=== PATIENT | female | born 1940 | race Caucasian/White ===

== ENCOUNTER 2017-06-17 16:53 | Emergency (ER) | payer OTHER, MEDICAID ==
[~2017-06-17] VITALS: Ht 162.6 cm; Wt 54.4 kg
[~2017-06-17 16:53] MED LIST: ADULT LOW DOSE81 MG; AMARYL4 MG PO; ATORVASTATIN CA40 MG PO; CRESTOR10 MG PO; DICLOFENAC SOD50 M1 PO; ETODOLAC 400 M400 M1; FISHOIL; GARLIC OIL1 EAC1; GLUCOPHAGE1000 MG PO; GLYCRON6 MG; HYDROCODONE-AP1 EAC6 PO; IRON PO; JANUVIA100 MG; LIORESAL 10 MG10 MG PO; MAGNES; NAPROSYN500 MG PO; NIASPAN 500 MG500 M1; OS-CAL 500+D C1 EACH; QUESTRAN; RESTASIS1 EACH OPHTHALMIC; VICODIN 5-5001 EACH PO; VYTORIN 10-401 EACH; ZANTAC 150MG T150 MG PO; ZOLOFT 50 MG TA50 M1; [UNRECOGNIZED DRUG - OTHER]
[2017-06-17] MEDS ORDERED: JARDIANCE10 MG PO (17:18)
[2017-06-17] MEDS ORDERED: NAPROSYN500 MG PO (17:18)
[2017-06-17] MEDS ORDERED: REFRESH CLASSI1 EACH OPHTHALMIC (17:18)
[2017-06-17] MEDS ORDERED: SYNTHROID50 MCG PO (17:19)
[2017-06-17] MEDS ORDERED: ONE-A-DAY PRO200 MCG PO (17:20)
[2017-06-17] MEDS ORDERED: COLESTIPOL HCL1 G1 PO (17:21)
[2017-06-17] MEDS ORDERED: PREDNISONE 10 M10 M1 PO (18:30)
[2017-06-17 18:37] VITALS: BP 130/56
== END 2017-06-17 18:39 | disposition home or self-care (01) ==
LOC: M.ERS 16:53
DX: M54.42 Lumbago with sciatica, left side (principal); M53.3 Sacrococcygeal disorders, not elsewhere classified; E11.9 Type 2 diabetes mellitus without complications; E78.5 Hyperlipidemia, unspecified; Z90.49 Acquired absence of other specified parts of digestive tract

== ENCOUNTER → 2017-07-02 | Outpatient (CLI) | payer OTHER, MEDICAID ==
[~2017-07-02] MED LIST changes: +COLESTIPOL HCL1 G1 PO; +JARDIANCE10 MG PO; +ONE-A-DAY PRO200 MCG PO; +PREDNISONE 10 M10 M1 PO; +REFRESH CLASSI1 EACH OPHTHALMIC; +SYNTHROID50 MCG PO
== END ==
LOC: M.RAD 10:31
DX: M47.896 Other spondylosis, lumbar region (principal); M85.872 Other specified disorders of bone density and structure, left ankle and foot

== ENCOUNTER → 2017-08-02 | Outpatient (CLI) | payer OTHER, MEDICAID | LOC: M.RAD 11:24 | DX: M25.572 Pain in left ankle and joints of left foot (principal) ==

== ENCOUNTER → 2017-12-23 | Outpatient (CLI) | payer OTHER, MEDICAID | LOC: M.MRI 12-13 15:37 | DX: M25.572 Pain in left ankle and joints of left foot (principal); G58.8 Other specified mononeuropathies; E11.9 Type 2 diabetes mellitus without complications; E78.5 Hyperlipidemia, unspecified ==

== ENCOUNTER 2020-07-21 14:56 | Inpatient (IN) | payer OTHER, MEDICAID ==
[~2020-07-21] VITALS: Ht 162.6 cm; Wt 51.3 kg
--- NOTE | ~2020-07-21 | PROC ---
[facility] [address] [place] [address] PROCEDURE REPORT Name: RONI VENTURA Room: [address] IN M.R.#: [id number] Admission: 07/21/20 Attend Phys: Gadiel Lynch Discharge: 07/23/20 Date of : 44 Report #: [id number] THIS REPORT FOR: cc: Emmanuel Spaulding Steve T. DO [facility],Medical Records Staff ~ For GI report, please see the Provation report in Perceptive 7 content. By: 0648Medical Records Staff MARKO /JERILYN
[~2020-07-21 14:56] MED LIST changes: -ATORVASTATIN CA40 MG PO; +LIPITOR40 MG PO
[2020-07-21 15:02] VITALS: BP 169/69
[2020-07-21 15:17] LABS: URINE BILIRUBIN NEGATIVE (Negative); URINE BLOOD TRACE (Negative); URINE CLARITY CLEAR; URINE COLOR YELLOW; URINE GLUCOSE-RANDOM 3+ (Negative); URINE KETONES TRACE (Negative); URINE LEUKOCYTES-REFLEX TRACE (Negative); URINE NITRITE-REFLEX NEGATIVE (Negative); URINE PROTEIN NEGATIVE (Negative); URINE SPECIFIC GRAVITY <= 1.005 (1.005-1.030); URINE UROBILINOGEN 0.2 E.U./dl (0.2-1.0)
[2020-07-21 15:24] LABS: SQUAMOUS 0-3 Few /LPF (0-3); URINE WBC-REFLEX 0-5 Rare /HPF (0-5)
[2020-07-21 15:25] LABS: BACTERIA-REFLEX 1-9 Few /HPF (None Seen); CASTS None Seen /LPF (None Seen); CRYSTALS None Seen /LPF (None Seen); URINE RBC 3-10 Few /HPF (0-2)
[2020-07-21 15:36] LABS: ABSOLUTE BASOPHILS 0.1 thou/uL (0.0-0.2); ABSOLUTE LYMPHOCYTES 1.7 thou/uL (0.8-5.3); ABSOLUTE MONOCYTES 0.7 thou/uL (0.0-1.2); BASOPHILS 0.5 %; EOSINOPHILS 0.4 %; HEMATOCRIT 33.4 % (37.0-47.0); HEMOGLOBIN 10.3 gm/dL (12.0-15.0); LYMPHOCYTES 14.9 %; MCH 23.9 pg (26.0-34.0); MCHC 30.9 g/dL (28.0-37.0); MCV 77.3 fL (80.0-100.0); MONOCYTES 6.4 %; MPV 7.3 fl. (7.2-11.1); NUCLEATED RBCS 0 /100WBC; PLATELET COUNT* 445 thou/uL (150-400); POLYS 77.8 %; RBC 4.32 mil/uL (4.20-5.00); RDW-CV 14.9 % (10.5-14.5); WBC 11.5 thou/uL (4.0-11.0)
[2020-07-21 15:37] LABS: BE -1.6 mmol/L (-2 to +3); PCO2 VENOUS 42.4 mmHg (41.0-51.0); PO2 VENOUS 78.5 mmHg (35.0-45.0)
[2020-07-21 15:49] LABS: CALCIUM 10.7 mg/dL (8.5-10.1); CREATININE 1.3 mg/dL (0.6-1.3); POTASSIUM 4.8 mmol/L (3.5-5.1)
[2020-07-21] MEDS ORDERED: ASA81BEC PO (15:51)
[2020-07-21] MEDS ORDERED: GABAPENTIN100 MG PO (15:51)
[2020-07-21 15:53] LABS: ALBUMIN 3.4 g/dL (3.4-5.0); TOTAL BILIRUBIN 0.4 mg/dL (<0.1-1.0); TOTAL PROTEIN 6.8 g/dL (6.4-8.2)
[2020-07-21 20:20] VITALS: BP 145/59
[2020-07-21 20:45] VITALS: BP 145/59
[2020-07-22 08:00] VITALS: BP 121/50
--- NOTE | 2020-07-22 11:00 | EKG ---
[place] [address] ELECTROCARDIOGRAM REPORT Name: RONI VENTURA Room: [address] ADM IN .R.#: [id number] Admission: 07/21/20 Attend Phys: Wilberto Way Discharge: Date of : 44 Date of Service: 07/21/20 1551 Report #: [id number] THIS REPORT FOR: //name// [facility] ED Test Date: 2020-07-21 Test Time: 15:51:46 Pat Name: RONI VENTURA Department: Room: [facility] Gender: F President And Chief Operating Officer: CINDY : 1940 Requested By: Drew Rivera Order Number: [id number] MD: Jeremy Alves Measurements Intervals [place] Rate: 98 P: 111 VT: 110 QRS: 120 QRSD: 83 T: 137 QT: 347 QTc: 444 Interpretive Statements Sinus rhythm Borderline short VT interval Right ventricular hypertrophy Nonspecific T abnormalities, lateral leads No previous ECG available for comparison Electronically Signed On 07-22-2020 11:00:38 CDT by Jeremy Alves [email or web address] <ELECTRONICALLY SIGNED> By: Jeremy Alves MD, FAC 07/22/20 1100 1551 1551 Jeremy Alves MD, [facility] /EPI
[2020-07-22 11:14] LABS: ABSOLUTE EOSINOPHILS 0.1 thou/uL (0.0-0.7); ABSOLUTE LYMPHOCYTES 1.7 thou/uL (0.8-5.3); ABSOLUTE MONOCYTES 0.7 thou/uL (0.0-1.2); ABSOLUTE NEUTROPHILS 8.1 thou/uL (1.6-8.1); BASOPHILS 0.2 %; EOSINOPHILS 1.3 %; HEMOGLOBIN 9.3 gm/dL (12.0-15.0); LYMPHOCYTES 16.2 %; MCHC 30.8 g/dL (28.0-37.0); MCV 77.8 fL (80.0-100.0); MONOCYTES 6.7 %; NUCLEATED RBCS 0 /100WBC; POLYS 75.6 %; RBC 3.86 mil/uL (4.20-5.00); RDW-CV 14.9 % (10.5-14.5); WBC 10.7 thou/uL (4.0-11.0)
[2020-07-22 11:20] LABS: PLATELET COUNT* 363 thou/uL (150-400)
[2020-07-22 11:30] LABS: ALBUMIN 2.6 g/dL (3.4-5.0); CALCIUM 9.5 mg/dL (8.5-10.1); CREATININE 0.8 mg/dL (0.6-1.3); POTASSIUM 4.1 mmol/L (3.5-5.1); TOTAL BILIRUBIN 0.2 mg/dL (<0.1-1.0); TOTAL PROTEIN 5.9 g/dL (6.4-8.2)
[2020-07-22 15:38] VITALS: BP 147/60
[2020-07-22 19:56] VITALS: BP 103/42
[2020-07-23 04:46] LABS: ABSOLUTE EOSINOPHILS 0.2 thou/uL (0.0-0.7); ABSOLUTE LYMPHOCYTES 2.2 thou/uL (0.8-5.3); ABSOLUTE MONOCYTES 0.9 thou/uL (0.0-1.2); ABSOLUTE NEUTROPHILS 7.4 thou/uL (1.6-8.1); BASOPHILS 0.3 %; EOSINOPHILS 2.1 %; HEMATOCRIT 27.4 % (37.0-47.0); HEMOGLOBIN 8.4 gm/dL (12.0-15.0); LYMPHOCYTES 20.7 %; MCH 23.8 pg (26.0-34.0); MCHC 30.8 g/dL (28.0-37.0); MCV 77.3 fL (80.0-100.0); MONOCYTES 8.4 %; MPV 6.7 fl. (7.2-11.1); NUCLEATED RBCS 0 /100WBC; PLATELET COUNT* 351 thou/uL (150-400); POLYS 68.5 %; RBC 3.55 mil/uL (4.20-5.00); RDW-CV 14.6 % (10.5-14.5); WBC 10.8 thou/uL (4.0-11.0)
[2020-07-23 05:06] LABS: ALBUMIN 2.2 g/dL (3.4-5.0); CALCIUM 8.7 mg/dL (8.5-10.1); CREATININE 0.9 mg/dL (0.6-1.3); POTASSIUM 4.1 mmol/L (3.5-5.1); TOTAL BILIRUBIN 0.1 mg/dL (<0.1-1.0); TOTAL PROTEIN 5.3 g/dL (6.4-8.2)
[2020-07-23 07:45] VITALS: BP 102/44
[2020-07-23] MEDS ORDERED: IRON325 PO (09:40)
[2020-07-23] MEDS ORDERED: NAPROSYN500 MG PO (09:40)
[2020-07-23] MEDS ORDERED: CARAFATE 1 GM TA1 G1 PO (09:40)
[2020-07-23] MEDS ORDERED: PREVACID30 M2 PO (09:40)
[2020-07-23] MEDS ORDERED: REGLAN 10 MG TA10 MG PO (09:40)
[2020-07-23] MEDS ORDERED: AUGMENTIN 875-1 EACH PO (09:40)
[2020-07-23 11:06] VITALS: BP 102/44
[2020-07-23 12:38] VITALS: BP 102/44
--- NOTE | 2020-07-25 07:32 | CON ---
[address] [address] CONSULTATION Name: RONI VENTURA Room: [address] IN M.R.#: [id number] Admission: 07/21/20 Attend Phys: Gadiel Lynch Discharge: 07/23/20 Date of : 44 Report #: [id number] THIS REPORT FOR: cc: Emmanuel Spaulding Steve T. DO Bodenstab, Johnna L. FNP ~ DOC #: [id number] cc: DO Estefania Gilman FNP DATE OF CONSULTATION: 07/22/2020 Please note at the time of this dictation, the patient was seen and physically examined by myself. REASON FOR CONSULTATION: Abnormal CT showing a gastric mass, nausea, and weight loss of 7 pounds. HISTORY OF PRESENT ILLNESS: This is a 79-year-old female, who is known to our practice, who underwent an EGD back in 10/2019 that showed grade B esophagitis. She had a gastric ulcer, duodenal erosions with biopsies showing chronic gastritis, negative for H. pylori and duodenal biopsy showed focal increased eosinophilic ____ and she was started on pantoprazole 40 mg b.i.d. She was to have a repeat EGD in 12/2019, but the patient called and canceled that appointment. Last colonoscopy was in 10/2019 at the same time as her EGD, she had a rectal polyp that was hyperplastic, otherwise internal hemorrhoids and essentially negative. ALLERGIES: LIDOCAINE, FAMOTIDINE, and PANTOPRAZOLE. MEDICATIONS FROM HOME: Include metformin, iron, atorvastatin, Refresh eyedrops, naproxen, Jardiance, Synthroid, folic acid, One-A-Day Vitamin, gabapentin, enteric-coated aspirin, Januvia, garlic oil, fish oil, Amaryl, [place], and Zoloft. PAST MEDICAL HISTORY: Noninsulin dependent diabetic, hyperlipidemia, chronic back pain, hypothyroidism, and some depression. PAST SURGICAL HISTORY: Laparoscopic cholecystectomy and a graft, bilateral ear drums. FAMILY HISTORY: Noncontributory. SOCIAL HISTORY: Denies any alcohol, tobacco, [place] [address] CONSULTATION Name: RONI VENTURA Room: [address]#: [id number] Admission: 07/21/20 Attend Phys: Gadiel Lynch Discharge: 07/23/20 Date of : 44 Report #: [id number] REVIEW OF SYSTEMS: Twelve-point review of systems is essentially negative except what is mentioned in the HPI. PHYSICAL EXAMINATION: VITAL SIGNS: Temperature 36.6, pulse 87, respirations 18, and blood pressure 145/59. HEART: Regular rate and rhythm. LUNGS: Diminished but clear. ABDOMEN: Soft, positive bowel sounds in all 4 quadrants with some tenderness noted in the epigastric area. LABORATORY DATA: Hemoglobin is 10.3, white count is 11.5, and platelets 445. LFTs are completely normal. BUN is 33 with a GFR of 40. Lipase 291. CT of the abdomen and pelvis shows gastric outlet obstruction with fluid distention, gastric antral and proximal duodenal mass-like mural thickening and ____ without surrounding inflammation. An incidental solitary duodenal diverticulum noted at 2.3 cm arising from the third segment. IMPRESSION: 1. Nausea. 2. Weight loss of 7 pounds. 3. Abdominal pain, more in the epigastric. 4. Abnormal CT with likely gastric outlet obstruction with fluid distention and gastric and antral and proximal duodenal mass-like mural thickening noted. 5. Anemia. 6. Chronic NSAID use. PLAN: 1. EGD. 2. Further recommendations after the above has been performed. Thank you for allowing us to participate in this patient's care. Please do not hesitate to call with any questions regarding this consult. MD ANDREW Gallegos/ADRIANA/SHARON <ELECTRONICALLY SIGNED> By: MARLYN Mesa 07/25/20 0732 0836 2216JoMARLYN Cueva /nt
--- NOTE | 2020-07-27 13:08 | PATH ---
[address] [address] PATHOLOGY RPT PROCEDURE Name: HELGA SANCHES Room: [address] IN M.R.#: [id number] Admission: 07/21/20 Date of : 44 Discharge: 07/23/20 Report #: [id number] Path Case #: [id number] [facility] Accession Number: [id number] . 01 Material submitted: . PART A: stomach - DUODENAL BULB ULCER/ANTRAL BIOPSY PART B: gastrointestinal site - GASTRIC ULCER . 01 Clinical history: . B. RULE OUT H. PYLORI . 02 Diagnosis: A. Duodenal bulb ulcer/antral biopsy: - Benign gastric antral and duodenal/small intestinal types mucosa with severe, nonspecific active inflammation and ulceration, negative for Helicobacter pylori organisms, granulomas and dysplasia/adenomatous change. . B. Gastric ulcer: - Mild chronic gastritis suggesting reactive gastropathy (chemical gastritis), negative for Helicobacter pylori organisms, granulomas and dysplasia. . (ALICIA:mml; 07/26/2020) QL 07/26/2020 1719 Local . 02 Comment: Special stains: H. pylori immuno on A and B . (ALICIA:mml; 07/26/2020) . 02 Electronically signed: . Jeremie Knight MD, Pathologist NPI- [id number] . 01 Gross description: . A. Received in formalin labeled "Helga Sanches and duodenal bulb ulcer/antral biopsy". Received are multiple marti-brown soft tissue fragments ranging from 0.1-0.2 cm. Specimen is entirely submitted in cassette A1. . B. Received in formalin labeled "Helga Sanches and gastric ulcer rule out H. pylori". Received are multiple thao-marti soft tissue fragments ranging from 0.1-0.3 cm. Specimen is entirely submitted in cassette B1.([facility]; 07/25/2020) [facility] 07/26/2020 1714 Local . 02 Pathologist provided ICD-10: [place] [address] PATHOLOGY RPT PROCEDURE Name: HELGA SANCHES Room: [address] IN [facility].#: [id number] Admission: 07/21/20 Date of : 44 Discharge: 07/23/20 Report #: [id number] Path Case #: [id number] K29.80, K25.9, K29.50 . 02 CPT . [id number], [id number], [id number] Specimen Comment: A courtesy copy of this report has been sent to [phone] Specimen Comment: [phone], Specimen Comment: Report sent to ,DR FORMAN / DR YEBOAH Performed at: [address], [place], [place] [address] MD Bernard Nichols MD Phone: [phone] Performed at: [facility] [address], [place], [place] [id number] MD Jeremie Knight MD Phone: [phone]
== END 2020-07-23 12:42 | disposition home or self-care (01) | DRG 391 ==
LOC: M.ERS 14:56 → M.ORTHSURG 17:04 → M.TBA-ER 17:04 → M.ORTHSURG 20:47
PROVIDERS: Emergency Medicine Emergency Medical Services; ADMIT Internal Medicine; ATTEND Internal Medicine
PROC: 0DB98ZX Excision of Duodenum, Via Natural or Artificial Opening Endoscopic, Diagnostic (ICD-10-PCS; principal; 2020-07-22)
PROC: 0DB68ZX Excision of Stomach, Via Natural or Artificial Opening Endoscopic, Diagnostic (ICD-10-PCS; principal; 2020-07-22)
DX: K31.89 Other diseases of stomach and duodenum (principal); E11.00 Type 2 diabetes mellitus with hyperosmolarity without nonketotic hyperglycemic-hyperosmolar coma (NKHHC); N39.0 Urinary tract infection, site not specified; K31.1 Adult hypertrophic pyloric stenosis; R65.10 Systemic inflammatory response syndrome (SIRS) of non-infectious origin without acute organ dysfunction; E11.65 Type 2 diabetes mellitus with hyperglycemia; E86.0 Dehydration; G89.29 Other chronic pain; M54.9 Dorsalgia, unspecified; E78.5 Hyperlipidemia, unspecified; F32.9 Major depressive disorder, single episode, unspecified; E03.9 Hypothyroidism, unspecified; D64.9 Anemia, unspecified; K21.00 Gastro-esophageal reflux disease with esophagitis, without bleeding; K44.9 Diaphragmatic hernia without obstruction or gangrene; K25.9 Gastric ulcer, unspecified as acute or chronic, without hemorrhage or perforation; K26.9 Duodenal ulcer, unspecified as acute or chronic, without hemorrhage or perforation; K22.2 Esophageal obstruction; Z20.822 Contact with and (suspected) exposure to COVID-19; Z90.49 Acquired absence of other specified parts of digestive tract; Z88.8 Allergy status to other drugs, medicaments and biological substances; Z79.82 Long term (current) use of aspirin; Z79.84 Long term (current) use of oral hypoglycemic drugs; Z79.899 Other long term (current) drug therapy

== ENCOUNTER 2020-10-11 11:43 | Inpatient (IN) | payer OTHER, MEDICAID ==
[~2020-10-11] VITALS: Ht 162.6 cm; Wt 49.0 kg
[~2020-10-11 11:43] MED LIST changes: +ASA81BEC PO; +AUGMENTIN 875-1 EACH PO; +CARAFATE 1 GM TA1 G1 PO; +GABAPENTIN100 MG PO; +IRON325 PO; +PREVACID30 M2 PO; +REGLAN 10 MG TA10 MG PO
[2020-10-11 12:01] VITALS: BP 180/98
[2020-10-11] MEDS ORDERED: JANUVIA100 MG PO (13:58)
[2020-10-11] MEDS ORDERED: CALCIUM500 MG PO (13:59)
[2020-10-11] MEDS ORDERED: FISH OIL 1,0001 EAC9 PO (13:59)
[2020-10-11 14:01] LABS: ABSOLUTE BASOPHILS 0.1 thou/uL (0.0-0.2); ABSOLUTE LYMPHOCYTES 2.2 thou/uL (0.8-5.3); ABSOLUTE MONOCYTES 0.5 thou/uL (0.0-1.2); ABSOLUTE NEUTROPHILS 11.2 thou/uL (1.6-8.1); BASOPHILS 0.6 %; EOSINOPHILS 0.1 %; HEMATOCRIT 41.4 % (37.0-47.0); HEMOGLOBIN 13.3 gm/dL (12.0-15.0); LYMPHOCYTES 15.5 %; MCH 25.7 pg (26.0-34.0); MCHC 32.1 g/dL (28.0-37.0); MCV 80.1 fL (80.0-100.0); MONOCYTES 3.9 %; MPV 7.5 fl. (7.2-11.1); NUCLEATED RBCS 0 /100WBC; PLATELET COUNT* 371 thou/uL (150-400); POLYS 79.9 %; RBC 5.17 mil/uL (4.20-5.00); RDW-CV 16.7 % (10.5-14.5)
[2020-10-11 14:09] LABS: CALCIUM 10.4 mg/dL (8.5-10.1); CREATININE 1.1 mg/dL (0.6-1.3); POTASSIUM 3.5 mmol/L (3.5-5.1)
[2020-10-11 14:13] LABS: TOTAL BILIRUBIN 0.6 mg/dL (<0.1-1.0); TOTAL PROTEIN 7.9 g/dL (6.4-8.2)
[2020-10-11 15:13] LABS: BE -1.2 mmol/L (-2 to +3); PCO2 VENOUS 45.2 mmHg (41.0-51.0); PO2 VENOUS 26.2 mmHg (35.0-45.0)
--- NOTE | 2020-10-11 15:41 | EKG ---
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1940 Requested By: Sindy June Order Number: [id number] MD: Jeremy Alves Measurements Intervals [place] Rate: 104 P: 71 OR: 151 QRS: 64 QRSD: 78 T: 60 QT: 363 QTc: 478 Interpretive Statements Sinus tachycardia Borderline prolonged QT interval Baseline wander in lead(s) V2 Compared to ECG 07/21/2020 15:51:46 Sinus rhythm no longer present Right ventricular hypertrophy no longer present T-wave abnormality no longer present Electronically Signed On 10-11-2020 15:41:33 CDT by Jeremy Alves [email or web address] <ELECTRONICALLY SIGNED> By: Jeremy Alves MD, [facility] 10/11/20 1541 1350 1350 Jeremy Alves MD, [facility] /EPI
--- NOTE | 2020-10-11 16:27 | NUR ---
PT AMBUATED TO RESTROOM WITH 1 PERSON ASSIST.
[2020-10-11 16:36] LABS: URINE BILIRUBIN NEGATIVE (Negative); URINE BLOOD 1+ (Negative); URINE CLARITY CLEAR; URINE COLOR YELLOW; URINE GLUCOSE-RANDOM 3+ (Negative); URINE LEUKOCYTES-REFLEX NEGATIVE (Negative); URINE PROTEIN 2+ (Negative); URINE UROBILINOGEN 0.2 E.U./dl (0.2-1.0)
[2020-10-11 16:39] LABS: URINE KETONES 3+ (Negative); URINE NITRITE-REFLEX POSITIVE (Negative)
[2020-10-11 16:41] LABS: ACETEST (KETONE CONFIRMATORY) Moderate (Negative)
[2020-10-11 16:44] LABS: BACTERIA-REFLEX 1-9 Few /HPF (None Seen); CASTS None Seen /LPF (None Seen); CRYSTALS None Seen /LPF (None Seen); SQUAMOUS 4-10 Moderate /LPF (0-3); URINE RBC 3-10 Few /HPF (0-2); URINE WBC-REFLEX 0-5 Rare /HPF (0-5)
--- NOTE | 2020-10-11 17:55 | NUR ---
PT GIVEN DINNER TRAY. DR. LYLES SPEAKING WITH THE PATIENT AT THIS TIME
[2020-10-11 21:00] VITALS: BP 107/78
[2020-10-12] VITALS (8 sets, daily range): BP systolic 110–187; BP diastolic 60–87
[2020-10-12 03:06] LABS: ABSOLUTE BASOPHILS 0.1 thou/uL (0.0-0.2); ABSOLUTE EOSINOPHILS 0.1 thou/uL (0.0-0.7); ABSOLUTE MONOCYTES 1.3 thou/uL (0.0-1.2); ABSOLUTE NEUTROPHILS 9.9 thou/uL (1.6-8.1); BASOPHILS 0.5 %; EOSINOPHILS 0.8 %; HEMOGLOBIN 13.2 gm/dL (12.0-15.0); MCH 25.8 pg (26.0-34.0); MCHC 33.1 g/dL (28.0-37.0); MONOCYTES 8.7 %; MPV 7.2 fl. (7.2-11.1); NUCLEATED RBCS 0 /100WBC; PLATELET COUNT* 420 thou/uL (150-400); RBC 5.12 mil/uL (4.20-5.00); RDW-CV 16.9 % (10.5-14.5); WBC 15.4 thou/uL (4.0-11.0)
[2020-10-12 03:14] LABS: CREATININE 0.9 mg/dL (0.6-1.3); POTASSIUM 3.6 mmol/L (3.5-5.1)
--- NOTE | 2020-10-12 12:44 | NUR ---
PT ADMITTED WITH GENERALIZED WEAKNESS. PT ALERT AND ORIENTED. PT ORIENTED TO ROOM. FALL RISK PRECAUTIONS IN PLACE.
--- NOTE | 2020-10-12 16:17 | NUR ---
CM S/W PT WHO INDICATED SHE LIVES ALONE IN ONE LEVEL APT. HER DTR LIVES IN THE SAME COMPLEX. PT IS ACTIVE AND INDEPENDENT WITH CARES. PT HAS NO DMES. NO HX WITH HH OR SNF. PT IS RETIRED. CM TO CONT TO FOLLOW.
--- NOTE | 2020-10-12 16:26 | NUR ---
PT REMAINED ALERT AND ORIENTED. PT RESTING IN BED. CALL LIGHT WITHIN REACH. FALL RISK PRECAUTIONS IN PLACE. ACCU CHECKS COMPLETED. HOURLY ROUNDING COMPLETED.
[2020-10-13 04:04] LABS: HEMATOCRIT 35.7 % (37.0-47.0); HEMOGLOBIN 11.8 gm/dL (12.0-15.0); MCH 26.5 pg (26.0-34.0); MCHC 33.1 g/dL (28.0-37.0); MCV 79.9 fL (80.0-100.0); MPV 7.2 fl. (7.2-11.1); RBC 4.46 mil/uL (4.20-5.00); RDW-CV 16.7 % (10.5-14.5); WBC 11.6 thou/uL (4.0-11.0)
--- NOTE | 2020-10-13 04:10 | NUR ---
PT A&OX4, VSS ON ROOM AIR, PT UP WITH ASSIST TO BR. IV FLUIDS INFUSING ORDERED. HYDRALAZINE GIVEN ORDERED FOR BP 184/70. PRN PAIN MED REQUESTED AND GIVEN ORDERED. ASSESSMENTS AND HOURLY ROUNDINGS COMPLETE, WILL CONTINUE TO MONITOR.
[2020-10-13 04:17] LABS: CALCIUM 8.2 mg/dL (8.5-10.1); CREATININE 0.7 mg/dL (0.6-1.3)
[2020-10-13 05:02] LABS: POTASSIUM 2.7 mmol/L (3.5-5.1)
[2020-10-13 08:00] VITALS: BP 201/98
--- NOTE | 2020-10-13 10:59 | NUR ---
1016: PATIENT C/O FEELING WEAK. BLOOD SUGAR 263, BLOOD PRESSURE 169/70, HEART 109, SAT 97%, RESPIRATONS 19. NO C/O SOA. DR. CLEMENTE PAGED. NEW ORDERS FOR LAB DRAW AND PROTOCOL FOR ELECTROLYTES. WILL CONTINUE TO MONITOR.
--- NOTE | 2020-10-13 15:10 | NUR ---
POC UPDATE: PT K NEEDS IMPROVEMENT. K IS BEING SUPPLEMENTED. DR CLEMENTE DISCUSSED SNF AT D/C OPTION. CM SPK WITH PT ABOUT DOCTOR'S RECOMMEDATION. PT INDICATED SHE DOES NOT WANT SNF. PT IS OPEN TO HH.
[2020-10-13 16:28] VITALS: BP 178/72
[2020-10-13 18:21] LABS: CALCIUM 8.5 mg/dL (8.5-10.1); CREATININE 0.9 mg/dL (0.6-1.3); POTASSIUM 3.3 mmol/L (3.5-5.1)
--- NOTE | 2020-10-13 19:03 | NUR ---
PATIENT TRANSFERED TO [facility] VIA WHEELCHAIR ACCOMPANIED BY NURSING STAFF. IV TO LEFT WRIST WITH NORMAL SALINE INFUSING AT 80ML/HR. HYDRALAZINE GIVEN X1. BLOOD SUGARS MONITORED, INSULIN GIVEN ORDERED. POTASSIUM GIVEN X3 THROUGH IV, X1 PO DUE TO LOW POTASSIUM. X1 ASSIST WITH GAIT BELT. ALL QUESTIONS AND CONCERNS ADDRESSED.
[2020-10-13 20:00] VITALS: BP 174/81
[2020-10-14] VITALS (7 sets, daily range): BP systolic 128–200; BP diastolic 49–97
--- NOTE | 2020-10-14 13:22 | NUR ---
Nutrition: Pt admitted with UTI, generalized weakness. Seen for "uncontrolled DM." Pt stated her BG at home runs 140-150 usually. BG currently is 287. Albumin 4. She is eating lunch, CHO control diet. She said she is having trouble getting the food to her mouth d/t her tremors; I sat and helped to feed her lunch. She is eating well. Insulin and other meds reviewed. She said her usual wt is 110-113#. Current wt 108#. Denies wt loss. Per assessment of her diet recall, she eats a CHO controlled diet at home, appears to have a healthy diet. She did agree to take home info on CHO counting - I left packet on her table. Consider mild risk at this time.
--- NOTE | 2020-10-14 16:11 | NUR ---
PT AGREEABLE TO HH, RECOMMENDED BY THE DOCTOR. CM FAXED REFERRAL TO [facility]. PER SAMARIA, [facility] IS ACCEPTING OF PT. DC ORDERS NEED TO BE FAXED AT ID [phone].
[2020-10-14 21:24] LABS: CALCIUM 8.6 mg/dL (8.5-10.1); CREATININE 0.8 mg/dL (0.6-1.3); POTASSIUM 4.2 mmol/L (3.5-5.1)
[2020-10-14 21:28] LABS: MAGNESIUM 0.8 mg/dL (1.8-2.4)
[2020-10-15 04:39] VITALS: BP 125/49
[2020-10-15 04:41] LABS: HEMATOCRIT 32.4 % (37.0-47.0); HEMOGLOBIN 10.7 gm/dL (12.0-15.0); MCH 26.2 pg (26.0-34.0); MCHC 33.1 g/dL (28.0-37.0); MCV 79.1 fL (80.0-100.0); MPV 7.4 fl. (7.2-11.1); RBC 4.09 mil/uL (4.20-5.00); RDW-CV 17.4 % (10.5-14.5); WBC 12.2 thou/uL (4.0-11.0)
[2020-10-15 04:58] LABS: ALBUMIN 2.6 g/dL (3.4-5.0); CALCIUM 8.5 mg/dL (8.5-10.1); CREATININE 0.7 mg/dL (0.6-1.3); MAGNESIUM 2.6 mg/dL (1.8-2.4); TOTAL BILIRUBIN 0.3 mg/dL (<0.1-1.0); TOTAL PROTEIN 5.4 g/dL (6.4-8.2)
--- NOTE | 2020-10-15 07:15 | NUR ---
PATIENT SLEPT MOST OF THE NIGHT. BEGINNING OF SHIFT DAUGHTER CALLED OUT STATED PATIENT WAS IN ALOT OF PAIN AND PATIENT WAS NOT ACTING NORMAL. WENT IN TO ASSESS PATIENT BP WAS ELEVATED AT 191/79 AND HR WAS 117. PATIENT WAS COMPLAING OF PAIN ALL OVER AND WAS SPASMING/JERKING. PATIENT WAS GIVEN HYDRALAZINE 10 MG IV FOR BP AND HYDROCODONE 2 TABS FOR PAIN AT ABOUT [address] CLEMENTE WAS PAGED. LABS WERE ORDERED AND MAGNESIUM WAS CRITICAL LOW AT 0.8 MG. MAGNESIUM WAS REPLACED PER PROTCOL. BP CAME DOWN INTITIALLY TO 132/49 AND HAS BEEN STABLE SINCE. PATIENT HAS NO COMPLAINTS OF PAIN THIS MORNING. WILL CONTINUE TO MONITOR.
[2020-10-15 08:00] VITALS: BP 161/69
[2020-10-15 12:00] VITALS: BP 124/52
[2020-10-15 16:00] VITALS: BP 164/64
--- NOTE | 2020-10-15 18:46 | NUR ---
ALERT AND ORIENTED X4. DENIED NEED FOR PAIN MEDICATION . CONTINUES ON IV ANTIBIODICS WITHOUT ADVERSE REACTIONS OR SIDE EFFECTS. USES CALL LIGHT WITHOUT REACH. FALL PRECAUTIONS IN PLACE. BED AND CHAIR ALARM USED.
[2020-10-15 20:30] VITALS: BP 153/62
[2020-10-16] VITALS: BP 162/72
[2020-10-16 04:26] LABS: HEMATOCRIT 28.2 % (37.0-47.0); HEMOGLOBIN 9.6 gm/dL (12.0-15.0); MCH 26.7 pg (26.0-34.0); MCV 78.5 fL (80.0-100.0); MPV 7.7 fl. (7.2-11.1); RBC 3.59 mil/uL (4.20-5.00); RDW-CV 17.4 % (10.5-14.5); WBC 12.2 thou/uL (4.0-11.0)
[2020-10-16 04:59] LABS: ALBUMIN 2.4 g/dL (3.4-5.0); CALCIUM 8.6 mg/dL (8.5-10.1); CREATININE 0.6 mg/dL (0.6-1.3); MAGNESIUM 1.1 mg/dL (1.8-2.4); POTASSIUM 3.6 mmol/L (3.5-5.1); TOTAL BILIRUBIN 0.3 mg/dL (<0.1-1.0); TOTAL PROTEIN 5.4 g/dL (6.4-8.2)
--- NOTE | 2020-10-16 08:09 | NUR ---
PATIENT SLEPT MOST OF THE NIGHT. IV REMAINS SALINE LOCKED. PATIENT WAS GIVEN PAIN MEDICINE ONCE THIS SHIFT. WILL CONTINUE TO MONITOR.
[2020-10-16 09:30] VITALS: BP 107/54
[2020-10-16 16:00] VITALS: BP 103/40
--- NOTE | 2020-10-16 18:30 | NUR ---
ALERT AND ORIENTED X4. UP WITH 1 ASSIST, GAIT BELT AND WALKER TO BATHROOM. USES PO PAIN MEDICATION TO HELP WITH PAIN. CONTINENT OF BOWEL AND BLADDER TODAY. MAGNESIUM REPLACED TODAY. USES CALL LIGHT FOR ASSIST. FALL PRECAUTIONS IN PLACE.
[2020-10-16 20:30] VITALS: BP 143/60
[2020-10-17] VITALS: BP 169/75
[2020-10-17 08:00] VITALS: BP 159/71
--- NOTE | 2020-10-17 08:09 | NUR ---
PATIENT SLEPT MOST OF THE NIGHT. IV REMAINS SALINE LOCKED. PATIENT WAS GIVEN PAIN MEDICINE ONCE THIS SHIFT. PATIENT COULD POSSIBLY GO HOME TODAY. WILL CONTINUE TO MONITOR.
[2020-10-17] MEDS ORDERED: CIPROFLOXACIN500 M1 PO (09:17)
[2020-10-17] MEDS ORDERED: NORVASC5 MG PO (09:17)
[2020-10-17] MEDS ORDERED: KLOR-CON 1010 MEQ PO (09:17)
[2020-10-17] MEDS ORDERED: MAG-OXIDE400 MG PO (09:17)
[2020-10-17] MEDS ORDERED: PRINIVIL40 MG PO (09:17)
[2020-10-17 09:51] LABS: CALCIUM 9.1 mg/dL (8.5-10.1); CREATININE 0.8 mg/dL (0.6-1.3); POTASSIUM 4.1 mmol/L (3.5-5.1)
[2020-10-17 11:41] VITALS: BP 159/71
--- NOTE | 2020-10-17 14:39 | NUR ---
Pt medically stable to dc today. CM faxed dc HH orders to [facility]
[2020-10-17 15:45] VITALS: BP 159/71
== END 2020-10-17 15:30 | disposition home health service (06) | DRG 872 ==
LOC: M.ERS 11:43 → M.TBA-ER 16:48 → M.3W 16:48 → M.2W 16:48 → M.3W 10-12 12:00 → M.2W 10-13 18:11
PROVIDERS: Internal Medicine; Nurse Practitioner Family; ADMIT Internal Medicine; ATTEND Internal Medicine
DX: A41.9 Sepsis, unspecified organism (principal); N30.01 Acute cystitis with hematuria; E11.65 Type 2 diabetes mellitus with hyperglycemia; E78.5 Hyperlipidemia, unspecified; E03.9 Hypothyroidism, unspecified; E87.6 Hypokalemia; I10 Essential (primary) hypertension; E83.42 Hypomagnesemia; G89.29 Other chronic pain; E11.40 Type 2 diabetes mellitus with diabetic neuropathy, unspecified; B96.89 Other specified bacterial agents as the cause of diseases classified elsewhere; M54.9 Dorsalgia, unspecified; Z20.822 Contact with and (suspected) exposure to COVID-19; Z90.49 Acquired absence of other specified parts of digestive tract; Z79.899 Other long term (current) drug therapy; Z79.84 Long term (current) use of oral hypoglycemic drugs; Z88.8 Allergy status to other drugs, medicaments and biological substances

== ENCOUNTER 2020-12-11 11:22 | Emergency (ER) | payer OTHER, MEDICAID ==
[~2020-12-11] VITALS: Ht 162.6 cm; Wt 50.8 kg
[~2020-12-11 11:22] MED LIST changes: +CALCIUM500 MG PO; +CIPROFLOXACIN500 M1 PO; +FISH OIL 1,0001 EAC9 PO; +JANUVIA100 MG PO; +KLOR-CON 1010 MEQ PO; +MAG-OXIDE400 MG PO; +NORVASC5 MG PO; +PRINIVIL40 MG PO
[2020-12-11] MEDS ORDERED: DOXYCYCLINE 10100 MG PO (13:09)
[2020-12-11] MEDS ORDERED: CENTANY30 GM TOP (13:13)
[2020-12-11 13:24] VITALS: BP 138/72
== END 2020-12-11 13:26 | disposition home or self-care (01) ==
LOC: M.ERS 11:22
DX: L02.211 Cutaneous abscess of abdominal wall (principal); G89.29 Other chronic pain; E78.5 Hyperlipidemia, unspecified; M19.90 Unspecified osteoarthritis, unspecified site; Z90.49 Acquired absence of other specified parts of digestive tract; Z48.01 Encounter for change or removal of surgical wound dressing; Z88.8 Allergy status to other drugs, medicaments and biological substances

== ENCOUNTER 2020-12-20 21:21 | Inpatient (IN) | payer OTHER, MEDICAID ==
[~2020-12-20] VITALS: Ht 162.6 cm; Wt 43.1 kg
--- NOTE | ~2020-12-20 | PROC ---
[address] [address] PROCEDURE REPORT Name: RONI VENTURA Room: [address] ADM IN M.R.#: [id number] Admission: 12/20/20 Attend Phys: Margi Boo MD Discharge: Date of : 44 Report #: [id number] THIS REPORT FOR: cc: Emmanuel Spaulding Steve T. DO [facility],Medical Records Staff ~ For GI report, please see the Provation report in Perceptive 7 cotent. By: 0649Medical Records Staff MARKO /JERILYN
--- NOTE | ~2020-12-20 | EKG ---
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
[~2020-12-20 21:21] MED LIST changes: +CENTANY30 GM TOP; +DOXYCYCLINE 10100 MG PO
[2020-12-20 21:42] VITALS: BP 117/43
[2020-12-20 22:31] LABS: URINE BILIRUBIN NEGATIVE (Negative); URINE BLOOD NEGATIVE (Negative); URINE CLARITY CLEAR; URINE COLOR YELLOW; URINE GLUCOSE-RANDOM 1+ (Negative); URINE KETONES NEGATIVE (Negative); URINE LEUKOCYTES-REFLEX 1+ (Negative); URINE NITRITE-REFLEX NEGATIVE (Negative); URINE PROTEIN NEGATIVE (Negative); URINE SPECIFIC GRAVITY 1.015 (1.005-1.030); URINE UROBILINOGEN 0.2 E.U./dl (0.2-1.0)
[2020-12-20 22:39] LABS: MPV 7.7 fl. (7.2-11.1); NUCLEATED RBCS 0 /100WBC
[2020-12-20 22:40] LABS: ABSOLUTE BASOPHILS 0.1 thou/uL (0.0-0.2); ABSOLUTE EOSINOPHILS 0.1 thou/uL (0.0-0.7); ABSOLUTE LYMPHOCYTES 3.4 thou/uL (0.8-5.3); ABSOLUTE MONOCYTES 1.1 thou/uL (0.0-1.2); ABSOLUTE NEUTROPHILS 8.8 thou/uL (1.6-8.1); BASOPHILS 0.8 %; EOSINOPHILS 0.7 %; HEMATOCRIT 33.4 % (37.0-47.0); HEMOGLOBIN 10.9 gm/dL (12.0-15.0); LYMPHOCYTES 25.2 %; MCH 30.1 pg (26.0-34.0); MCHC 32.5 g/dL (28.0-37.0); MCV 92.6 fL (80.0-100.0); PLATELET COUNT* 506 thou/uL (150-400); POLYS 65.3 %; RBC 3.61 mil/uL (4.20-5.00); RDW-CV 16.3 % (10.5-14.5); WBC 13.5 thou/uL (4.0-11.0)
[2020-12-20 22:43] LABS: BACTERIA-REFLEX 1-9 Few /HPF (None Seen); CASTS None Seen /LPF (None Seen); CRYSTALS None Seen /LPF (None Seen); SQUAMOUS 4-10 Moderate /LPF (0-3); URINE RBC 0-2 Rare /HPF (0-2); URINE WBC-REFLEX 6-15 Few /HPF (0-5)
[2020-12-20 22:54] LABS: ALBUMIN 3.6 g/dL (3.4-5.0); CREATININE 1.2 mg/dL (0.6-1.3); POTASSIUM 3.9 mmol/L (3.5-5.1); TOTAL BILIRUBIN 0.7 mg/dL (<0.1-1.0); TOTAL PROTEIN 7.2 g/dL (6.4-8.2)
[2020-12-20 22:58] LABS: BE 5.3 mmol/L (-2 to +3); PCO2 35.3 mmHg (35.0-45.0); pH 7.521 (7.340-7.450)
[2020-12-20 23:06] LABS: CALCIUM 15.6 mg/dL (8.5-10.1)
[2020-12-21] VITALS (7 sets, daily range): BP systolic 91–138; BP diastolic 35–63
--- NOTE | 2020-12-21 09:49 | EKG ---
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
[2020-12-21 11:07] LABS: CREATININE 1.1 mg/dL (0.6-1.3); MAGNESIUM 1.5 mg/dL (1.8-2.4); POTASSIUM 4.1 mmol/L (3.5-5.1)
[2020-12-21 11:10] LABS: CALCIUM 14.7 mg/dL (8.5-10.1)
[2020-12-22 00:08] VITALS: BP 128/54
[2020-12-22 04:12] LABS: HEMATOCRIT 26.5 % (37.0-47.0); MCH 30.4 pg (26.0-34.0); MCHC 33.2 g/dL (28.0-37.0); MCV 91.8 fL (80.0-100.0); MPV 7.5 fl. (7.2-11.1); RBC 2.89 mil/uL (4.20-5.00); RDW-CV 15.8 % (10.5-14.5); WBC 7.8 thou/uL (4.0-11.0)
[2020-12-22 04:25] LABS: CREATININE 0.9 mg/dL (0.6-1.3); POTASSIUM 3.3 mmol/L (3.5-5.1)
[2020-12-22 04:27] LABS: HEMOGLOBIN 8.8 gm/dL (12.0-15.0)
[2020-12-22 04:28] LABS: CREATININE 0.8 mg/dL (0.6-1.3); PHOSPHORUS* 0.9 mg/dL (2.5-4.9)
[2020-12-22 04:38] VITALS: BP 110/50
[2020-12-22 05:16] LABS: CALCIUM 11.5 mg/dL (8.5-10.1)
[2020-12-22 05:37] LABS: CALCIUM 11.3 mg/dL (8.5-10.1)
[2020-12-22 05:40] LABS: MAGNESIUM 0.8 mg/dL (1.8-2.4)
[2020-12-22 08:00] VITALS: BP 97/48
[2020-12-22 12:00] VITALS: BP 103/46
--- NOTE | 2020-12-22 14:23 | EKG ---
[place] [address] ELECTROCARDIOGRAM REPORT Name: RONI VENTURA Room: [address] ADM IN .R.#: [id number] Admission: 12/20/20 Attend Phys: Margi Boo, Discharge: Date of : 44 Date of Service: 12/22/20 [facility] Report #: [id number] THIS REPORT FOR: //name// [facility] Test Date: 2020-12-22 Test Time: 10:24:09 Pat Name: RONI VENTURA Department: Room: [address] Gender: F Subscription Agent: BANDAR : 1940 Requested By: Antonio Naik Order Number: [id number] Reading MD: Jeremy Alves Measurements Intervals [place] Rate: 97 P: 54 NE: 129 QRS: 59 QRSD: 62 T: 69 QT: 341 QTc: 433 Interpretive Statements Sinus rhythm Borderline T abnormalities, lateral leads Compared to ECG 12/20/2020 21:29:08 Sinus tachycardia no longer present T-wave abnormality still present Electronically Signed On 12-22-2020 14:23:04 CDT by Jeremy Alves [email or web address] <ELECTRONICALLY SIGNED> By: Jeremy Alves MD, FAC 12/22/20 1423 1024 1024 Jeremy Alves MD, [facility] /EPI
[2020-12-22 14:44] LABS: ABSOLUTE EOSINOPHILS 0.1 thou/uL (0.0-0.7); ABSOLUTE LYMPHOCYTES 1.6 thou/uL (0.8-5.3); ABSOLUTE MONOCYTES 0.4 thou/uL (0.0-1.2); ABSOLUTE NEUTROPHILS 8.5 thou/uL (1.6-8.1); BASOPHILS 0.2 %; EOSINOPHILS 0.9 %; HEMATOCRIT 28.9 % (37.0-47.0); HEMOGLOBIN 9.5 gm/dL (12.0-15.0); LYMPHOCYTES 15.2 %; MCH 30.7 pg (26.0-34.0); MCHC 32.8 g/dL (28.0-37.0); MCV 93.6 fL (80.0-100.0); MONOCYTES 4.1 %; MPV 7.6 fl. (7.2-11.1); NUCLEATED RBCS 0 /100WBC; PLATELET COUNT* 427 thou/uL (150-400); POLYS 79.6 %; RBC 3.09 mil/uL (4.20-5.00); RDW-CV 16.2 % (10.5-14.5); WBC 10.7 thou/uL (4.0-11.0)
[2020-12-22 14:45] LABS: CALCIUM 11.6 mg/dL (8.5-10.1); POTASSIUM 3.9 mmol/L (3.5-5.1)
[2020-12-22 16:00] VITALS: BP 140/44
[2020-12-22 20:00] VITALS: BP 142/65
[2020-12-23] VITALS: BP 132/87
[2020-12-23 04:03] LABS: HEMATOCRIT 26.6 % (37.0-47.0); HEMOGLOBIN 8.9 gm/dL (12.0-15.0); MCH 30.5 pg (26.0-34.0); MCHC 33.3 g/dL (28.0-37.0); MCV 91.8 fL (80.0-100.0); MPV 7.5 fl. (7.2-11.1); RBC 2.9 mil/uL (4.20-5.00); RDW-CV 15.6 % (10.5-14.5); WBC 8.3 thou/uL (4.0-11.0)
[2020-12-23 04:25] LABS: % SATURATION 14 % (20-39); IRON 43 ug/dL (50-175)
[2020-12-23 04:27] LABS: CALCIUM 10.2 mg/dL (8.5-10.1); CREATININE 0.8 mg/dL (0.6-1.3); POTASSIUM 3.2 mmol/L (3.5-5.1)
[2020-12-23 04:30] VITALS: BP 143/64
[2020-12-23 04:35] LABS: MAGNESIUM 1.4 mg/dL (1.8-2.4); PHOSPHORUS* 1.1 mg/dL (2.5-4.9)
[2020-12-23 08:17] LABS: ALBUMIN 2.7 g/dL (3.4-5.0); CREATININE 0.8 mg/dL (0.6-1.3); PHOSPHORUS* 1.2 mg/dL (2.5-4.9); POTASSIUM 3.5 mmol/L (3.5-5.1)
[2020-12-23 11:24] LABS: PHOSPHORUS* 1.3 mg/dL (2.5-4.9); POTASSIUM 4.2 mmol/L (3.5-5.1)
[2020-12-23 16:00] VITALS: BP 152/66
[2020-12-23 20:00] VITALS: BP 158/65
[2020-12-23 21:06] LABS: IgA 55 mg/dL (64-422); IgG 951 mg/dL (586-1602); IgM 31 mg/dL (26-217)
[2020-12-24 00:20] VITALS: BP 148/57
[2020-12-24 04:33] VITALS: BP 160/72
[2020-12-24 08:00] VITALS: BP 132/57
[2020-12-24 12:55] LABS: CALCIUM 9.7 mg/dL (8.5-10.1); CREATININE 0.7 mg/dL (0.6-1.3); PHOSPHORUS* 4.7 mg/dL (2.5-4.9)
[2020-12-24 14:16] VITALS: BP 154/52
[2020-12-24 17:29] VITALS: BP 142/56
[2020-12-24 19:07] LABS: KAPPA FREE LIGHT CHAINS 28.5 mg/L (3.3-19.4); LAMBDA FREE LIGHT CHAINS 51.5 mg/L (5.7-26.3)
[2020-12-24 20:00] VITALS: BP 151/53
[2020-12-25] VITALS (7 sets, daily range): BP systolic 118–142; BP diastolic 50–78
[2020-12-25 15:21] LABS: PHOSPHORUS* 5.4 mg/dL (2.5-4.9); TOTAL BILIRUBIN 0.5 mg/dL (<0.1-1.0)
[2020-12-25 16:47] LABS: CALCIUM 8.4 mg/dL (8.5-10.1); CREATININE 1.2 mg/dL (0.6-1.3)
[2020-12-25 16:49] LABS: ALBUMIN 2.7 g/dL (3.4-5.0); TOTAL PROTEIN 5.6 g/dL (6.4-8.2)
[2020-12-26] VITALS (7 sets, daily range): BP systolic 108–148; BP diastolic 49–68
[2020-12-26 15:07] LABS: GLOBULIN TOTAL 2.4 g/dL (2.2-3.9); M-SPIKE 0.4 g/dL (Not Observed)
[2020-12-27 04:55] VITALS: BP 105/46
[2020-12-27 08:00] VITALS: BP 117/52
[2020-12-27 11:54] LABS: CALCIUM 8.5 mg/dL (8.5-10.1); CREATININE 0.9 mg/dL (0.6-1.3); POTASSIUM 4.1 mmol/L (3.5-5.1)
[2020-12-27 12:12] VITALS: BP 133/49
[2020-12-27 17:36] VITALS: BP 131/59
[2020-12-27 20:00] VITALS: BP 147/47
[2020-12-27 23:45] VITALS: BP 151/56
[2020-12-28 04:40] VITALS: BP 137/56
[2020-12-28 07:09] LABS: ABSOLUTE BASOPHILS 0.1 thou/uL (0.0-0.2); ABSOLUTE EOSINOPHILS 0.1 thou/uL (0.0-0.7); ABSOLUTE MONOCYTES 0.7 thou/uL (0.0-1.2); ABSOLUTE NEUTROPHILS 5.1 thou/uL (1.6-8.1); BASOPHILS 0.7 %; EOSINOPHILS 1.7 %; HEMATOCRIT 27.2 % (37.0-47.0); HEMOGLOBIN 8.9 gm/dL (12.0-15.0); LYMPHOCYTES 24.7 %; MCH 31.2 pg (26.0-34.0); MCHC 32.9 g/dL (28.0-37.0); MCV 94.7 fL (80.0-100.0); MONOCYTES 8.3 %; MPV 7.3 fl. (7.2-11.1); NUCLEATED RBCS 0 /100WBC; PLATELET COUNT* 360 thou/uL (150-400); POLYS 64.6 %; RBC 2.87 mil/uL (4.20-5.00); RDW-CV 16.9 % (10.5-14.5); WBC 7.9 thou/uL (4.0-11.0)
[2020-12-28 07:25] LABS: ALBUMIN 2.5 g/dL (3.4-5.0); CALCIUM 8.7 mg/dL (8.5-10.1); CREATININE 0.7 mg/dL (0.6-1.3); POTASSIUM 4.2 mmol/L (3.5-5.1); TOTAL BILIRUBIN 0.2 mg/dL (<0.1-1.0); TOTAL PROTEIN 5.8 g/dL (6.4-8.2)
[2020-12-28 15:08] LABS: URINE PROTEIN (MG/DL) 8.5 mg/dL (Not Estab.)
[2020-12-28 16:00] VITALS: BP 142/60
[2020-12-29] VITALS: BP 137/51
[2020-12-29 04:00] VITALS: BP 127/50
[2020-12-29 06:06] LABS: ALBUMIN 2.7 g/dL (3.4-5.0); CALCIUM 9.1 mg/dL (8.5-10.1); CREATININE 0.7 mg/dL (0.6-1.3); MAGNESIUM 1.3 mg/dL (1.8-2.4); POTASSIUM 3.9 mmol/L (3.5-5.1); TOTAL BILIRUBIN 0.2 mg/dL (<0.1-1.0); TOTAL PROTEIN 6.1 g/dL (6.4-8.2)
[2020-12-29 08:00] VITALS: BP 129/55
--- NOTE | 2020-12-29 08:55 | CON ---
[address] [address] CONSULTATION Name: RONI VENTURA Room: [address] IN M.R.#: [id number] Admission: 12/20/20 Attend Phys: Margi Boo MD Discharge: Date of : 44 Report #: [id number] THIS REPORT FOR: cc: Emmanuel Spaulding Steve T. DO Elia, Manana MD ~ DATE OF CONSULTATION: 12/26/2020 REASON FOR CONSULTATION: Hypercalcemia. REQUESTING PHYSICIAN: Margi Boo MD HISTORY OF PRESENT ILLNESS: The patient is a pleasant 80-year-old woman who was admitted to the hospital a week ago with hypercalcemia. Calcium on admission was 15.6. The patient was given IV fluids. Review of the chart, I do not see she was given bisphosphonates. Hypercalcemia gradually improved. Hematology consult is requested. Intact PTH is normal. She is relatively calm, sitting in the chair comfortably. Her daughter at bedside. She does not have complaints of nausea or vomiting. She has been receiving antibiotics for UTI. Condition is gradually improving. She has complaints of weight loss. She states she lost about 15 pounds, more than 10% of her body weight last 3-4 months. She has loss of appetite. Denies any infections. Denies any . She states she had "back pain" a couple of months ago, but this is better now. Denies cough, shortness of breath, headaches. PAST MEDICAL HISTORY: Significant for chronic back pain, diabetes mellitus, hyperlipidemia, osteoarthritis. SOCIAL HISTORY: She lives alone. Her daughter lives close by. FAMILY HISTORY: Positive for head and neck cancer in her uncle. There is no family history of multiple myeloma or hematological malignancies. PHYSICAL EXAMINATION: GENERAL: Reveals an elderly woman, appearing chronically ill. VITAL SIGNS: Blood pressure 108/63, heart rate is 77, temperature 97.3. HEENT: Neck supple. There is no thrush. HEART: Normal S1, S2. LUNGS: Clear. ABDOMEN: Soft. No organomegaly. EXTREMITIES: No edema. There is no lymphadenopathy. SKIN: Does not reveal any rash. LABORATORY DATA: White count 8.3, hemoglobin 8.9, MCV 91.8, platelets 402. Total protein 5.6, albumin 2.7, calcium is 8.4 today. Sodium 137, potassium [facility] [address] [place] [address] CONSULTATION Name: RONI VENTURA Room: [address]#: [id number] Admission: 12/20/20 Attend Phys: Margi Boo MD Discharge: Date of : 44 Report #: [id number] 4.0, chloride 102, BUN 23, creatinine 1.2. IgG 941, IgA 55, IgM 31. Plasma free light chain ratio normal. ASSESSMENT AND PLAN: Hypercalcemia, versus possible malignancy. Intact PTH normal. Interestingly, hypercalcemia improved with hydration, controlled her UPEP. CT of chest, abdomen and pelvis for unexplained weight loss. Thank you very much for allowing me to participate in care. <ELECTRONICALLY SIGNED> By: Palomo Ivey MD 12/29/20 0855 05 2224Palomo Ivey MD /nt
[2020-12-29 16:00] VITALS: BP 118/60
[2020-12-29 20:00] VITALS: BP 145/56
[2020-12-30] VITALS: BP 130/74
[2020-12-30 04:00] VITALS: BP 113/49; BP 130/74
[2020-12-30 04:26] LABS: HEMATOCRIT 29.5 % (37.0-47.0); HEMOGLOBIN 9.7 gm/dL (12.0-15.0); MCH 31.8 pg (26.0-34.0); MCHC 32.8 g/dL (28.0-37.0); MCV 96.9 fL (80.0-100.0); MPV 7.4 fl. (7.2-11.1); RBC 3.04 mil/uL (4.20-5.00); RDW-CV 16.6 % (10.5-14.5); WBC 8.1 thou/uL (4.0-11.0)
[2020-12-30 04:50] LABS: ALBUMIN 2.7 g/dL (3.4-5.0); ALKALINE PHOSPHATASE 107 U/L (46-116); ANION GAP 9 mmol/L (7-16); BUN 17 mg/dL (7-18); CALCIUM 9.1 mg/dL (8.5-10.1); CHLORIDE 100 mmol/L (98-107); CO2 24 mmol/L (21-32); CREATININE 0.8 mg/dL (0.6-1.3); GLUCOSE 91 mg/dL (70-99); POTASSIUM 3.2 mmol/L (3.5-5.1); SGPT 32 U/L (30-65); SODIUM 133 mmol/L (136-145); TOTAL BILIRUBIN 0.3 mg/dL (<0.1-1.0); TOTAL PROTEIN 6.2 g/dL (6.4-8.2)
[2020-12-30 04:52] LABS: SGOT < 5 U/L (15-37)
[2020-12-30 08:00] VITALS: BP 117/46
[2020-12-30 12:01] VITALS: BP 117/46
--- NOTE | 2021-01-02 12:12 | CON ---
[address] [address] CONSULTATION Name: RONI VENTURA Room: [address] IN M.R.#: [id number] Admission: 12/20/20 Attend Phys: Margi Boo MD Discharge: 12/30/20 Date of : 44 Report #: [id number] THIS REPORT FOR: cc: Emmanuel Spaulding Steve T. DO Khan, Abid R. MD ~ DATE OF CONSULTATION: 12/22/2020 NEPHROLOGY CONSULT CONSULTING PHYSICIAN: Margi Boo MD REASON FOR CONSULTATION: Hypercalcemia. HISTORY OF PRESENT ILLNESS: The patient is a 80-year-old female who is admitted with weakness. She has had about 12-pound weight loss since September. She had a calcium of 15.6 on admission. She denies taking any Tums. Denies any heartburn type symptoms. No diarrhea. No new medications. Denies taking any calcium supplements or vitamin A. She does not take any vitamin D. She denies any night sweats or lumps or bumps. No shortness of breath. She was started on IV fluids for the elevated calcium. She takes one calcium pill and a multivitamin at home. She tells me that her cancer screening has been up to date as far she recalls. She does get mammograms every year and her last Pap smear was negative and she was told she did not need any further testing. REVIEW OF SYSTEMS: Constitutional, psych, heme, eyes, ENT, respiratory, cardiac, GI, , endocrine, all negative except as documented above. PAST MEDICAL HISTORY: Diabetes, osteoarthritis, dyslipidemia. CURRENT MEDICATIONS: Reviewed. SOCIAL HISTORY: Denies tobacco. FAMILY HISTORY: Brother had throat cancer. No other family history of cancer. PHYSICAL EXAMINATION: VITAL SIGNS: Blood pressure 103/46, pulse 94, respirations 18, temperature 36.2. GENERAL: No acute distress. EYES: Open. EARS: Externally normal. NECK: Supple. CARDIOVASCULAR: Regular rate. LUNGS: [place] [address] CONSULTATION Name: RONI VENTURA Room: [address]#: [id number] Admission: 12/20/20 Attend Phys: Margi Boo MD Discharge: 12/30/20 Date of : 44 Report #: [id number] ABDOMEN: Soft. MUSCULOSKELETAL: Nontender. PSYCHIATRIC: Awake, alert. No supraclavicular or cervical lymphadenopathy. No thyroid masses palpable. LABORATORY DATA: White cell count 10.7, hemoglobin 9.5, platelets 427. Sodium 136, potassium 3.9, chloride 101, bicarbonate 30, BUN 22, creatinine 1, glucose 394, calcium 11.6, magnesium 2.7, phosphorus 0.9. TSH is okay. UA was okay. ASSESSMENT AND PLAN: 1. Severe hypercalcemia with a calcium of 15.6 on admission. She takes 500 mg a day of calcium along with a multivitamin and drinks about 16-24 ounces of milk per day. Chest x-ray was unrevealing. 2. Anemia. 3. A 12-pound unintentional weight loss since September. 4. Severe hypophosphatemia with a phosphorus of 0.9. 5. Severe hypomagnesemia with a magnesium of 0.8. It was also 0.8 on 10/14/2020. PLAN: 1. Calcium is down to 11.6. Continue IV fluids. Vitamin D and PTH are pending. We will also add a PTH related peptide 125, vitamin D, SPEP, serum immunofixation, and free light chain assay. 2. Replace phosphorus. 3. Magnesium has been replaced. 4. She will need up-to-date cancer screening. We will follow along with you. Thank you for requesting my opinion in the care and management of this patient. <ELECTRONICALLY SIGNED> By: Marvin Caraballo MD 01/02/21 1212 1449 1927Alorena Caraballo MD /nt
== END 2020-12-30 13:27 | disposition home or self-care (01) | DRG 872 ==
LOC: M.ERS 21:21 → M.ORTHSURG 23:48 → M.TBA-ER 23:48 → M.ORTHSURG 12-21 00:56
PROVIDERS: Internal Medicine; Internal Medicine Gastroenterology; Internal Medicine Hematology & Oncology; Internal Medicine Nephrology; Personal Emergency Response Attendant; ADMIT Internal Medicine; ATTEND Internal Medicine
PROC: 0D738ZZ Dilation of Lower Esophagus, Via Natural or Artificial Opening Endoscopic (ICD-10-PCS; principal; 2020-12-28)
DX: A41.9 Sepsis, unspecified organism (principal); N39.0 Urinary tract infection, site not specified; Z68.1 Body mass index [BMI] 19.9 or less, adult; E83.52 Hypercalcemia; G89.29 Other chronic pain; E83.42 Hypomagnesemia; R63.4 Abnormal weight loss; D50.9 Iron deficiency anemia, unspecified; E87.6 Hypokalemia; M54.9 Dorsalgia, unspecified; K22.2 Esophageal obstruction; R13.10 Dysphagia, unspecified; K29.60 Other gastritis without bleeding; Z60.2 Problems related to living alone; K44.9 Diaphragmatic hernia without obstruction or gangrene; E11.9 Type 2 diabetes mellitus without complications; E83.39 Other disorders of phosphorus metabolism; K59.00 Constipation, unspecified; F41.9 Anxiety disorder, unspecified; F32.A Depression, unspecified; I10 Essential (primary) hypertension; K31.89 Other diseases of stomach and duodenum; E78.5 Hyperlipidemia, unspecified; B96.89 Other specified bacterial agents as the cause of diseases classified elsewhere; M19.90 Unspecified osteoarthritis, unspecified site; Z20.822 Contact with and (suspected) exposure to COVID-19; Z90.49 Acquired absence of other specified parts of digestive tract; Z79.899 Other long term (current) drug therapy; Z79.82 Long term (current) use of aspirin; Z79.84 Long term (current) use of oral hypoglycemic drugs; Z88.4 Allergy status to anesthetic agent; Z88.8 Allergy status to other drugs, medicaments and biological substances; Z80.8 Family history of malignant neoplasm of other organs or systems